=== PATIENT | male | born 1955 | race Caucasian/White ===

== ENCOUNTER 2022-03-29 19:50 | Emergency (ER) | payer MEDICARE, OTHER ==
[~2022-03-29] VITALS: Ht 185.4 cm; Wt 97.5 kg
--- NOTE | 2022-03-29 20:10 | NUR ---
BIBSLEF C/O CP X 1 HR LEFT SIDE DULL NO RAD. PATIENT A/O X 4, RR EVEN, NON LABORED. PATIENT TAKEN TO ER BED 10. PATIENT CONNECTED TO [employer]OCK[employer]INE AND POX.
--- NOTE | 2022-03-29 20:11 | NUR ---
ER AT BEDSIDE
[2022-03-29] MEDS ORDERED: ASPIRIN 325 MG TABLET ONE (20:25)
--- NOTE | 2022-03-29 20:28 | NUR ---
CALLING [phone]
[2022-03-29] MEDS ORDERED: HEPARIN SODIUM, PORCINE 5000 UNITS/1 ML VIAL IV ONE ×2 (20:30)
[2022-03-29] MEDS ORDERED: ASPIRIN 325 MG TABLET PO ONE (20:30)
[2022-03-29] MEDS ORDERED: HEPARIN SODIUM, PORCINE 5000 UNITS/1 ML VIAL ONE (20:31)
--- NOTE | 2022-03-29 20:31 | NUR ---
IV LINE ESTABLISHED RAC 20 G, BLOOD OBTAINED AND SENT TO LAB
--- NOTE | 2022-03-29 20:32 | NUR ---
SECOND IV LINE ESTABLISHED , LAC 20G
[2022-03-29 20:39] VITALS: BP 135/87
--- NOTE | 2022-03-29 20:39 | NUR ---
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
--- NOTE | 2022-03-29 20:41 | NUR ---
REPORT GIVEN TO NATHANIEL AT [facility]. DR KEN IS ACCEPTING THE PT
--- NOTE | 2022-03-29 20:42 | NUR ---
PT WAS TRANSFERRED TO [facility] VIA 911 WITH AT BED SIDE
[2022-03-29 20:45] LABS: BASOPHILS % (AUTO) 0.3 % (0.0-2.0); HEMATOCRIT 42 % (39-51); HEMOGLOBIN 13.9 g/dL (13.5-17.5); LYMPHOCYTES # (AUTO) 3.3 K/uL (0.8-4.8); LYMPHOCYTES % (AUTO) 38.2 % (20.0-44.0); MEAN CORPUSCULAR HGB CONC 33 g/dl (31.0-36.0); MEAN CORPUSCULAR VOLUME 91 fL (80-96); MONOCYTES # (AUTO) 0.6 K/uL (0.1-1.30); MONOCYTES % (AUTO) 6.8 % (2.0-12.0); NEUTROPHILS # (AUTO) 4.2 K/uL (1.8-8.9); NEUTROPHILS % (AUTO) 47.7 % (43.0-81.0); PLATELET COUNT (AUTO) 228 K/uL (150-450); RED BLOOD CELL COUNT(AUTO) 4.61 MIL/uL (4.5-6.0); WHITE BLOOD COUNT (AUTO) 8.7 K/uL (4.3-11.0)
[2022-03-29 21:04] LABS: CALCIUM, SERUM 8.9 mg/dL (8.5-10.1); CARBON DIOXIDE 28 mmol/L (21-32); CHLORIDE 102 mmol/L (98-107); CREATININE 1.2 mg/dL (0.6-1.3); GLUCOSE 188 mg/dL (74-106); POTASSIUM 3.8 mmol/L (3.5-5.1); SODIUM SERUM 137 mmol/L (136-145); UREA NITROGEN, BLOOD 22 mg/dL (7-18)
== END 2022-03-29 21:58 | disposition short-term general hospital (02) ==
LOC: ER 19:53
DX: I21.3 ST elevation (STEMI) myocardial infarction of unspecified site (principal)
CPT/HCPCS: 36415; 80048; 84484; 85025; 96374; 99291; J1644